=== PATIENT | female | born 1995 | race Caucasian/White ===

== ENCOUNTER → 2020-01-29 14:00 | Outpatient (CLI) | payer OTHER, SELFPAY ==
--- NOTE | 2020-01-29 14:01 | DI.RAD.S_ITS ---
PROCEDURE: XR ANKLE LT MIN 3V INDICATIONS: Left ankle pain TECHNIQUE: 3 views of the ankle were acquired. COMPARISON: None. FINDINGS: Bones: No fractures or dislocations. Ankle mortise is normally aligned. No suspicious bony lesions. Diffuse hindfoot and midfoot joint degeneration. Scattered degenerative subchondral sclerosis and spurring. Soft tissues: No tibiotalar joint effusion. Achilles tendon appears normal. IMPRESSION: Diffuse hindfoot and midfoot joint degeneration. If the patient's pain or other symptoms persist, consider further evaluation with MRI Dictated by: Israel Curtis M.D. on 01/29/2020 at 16:45 Approved by: Israel Curtis M.D. on 01/29/2020 at 16:47
== END ==
PROVIDERS: PCP Family Medicine; Referring Provider Family Medicine; Visit Provider Family Medicine
DX: M25.572 Pain in left ankle and joints of left foot (principal); M19.072 Primary osteoarthritis, left ankle and foot; Z76.89 Persons encountering health services in other specified circumstances
CPT/HCPCS: 73610

== ENCOUNTER 2020-04-27 23:13 | Emergency (ER) | payer SELFPAY ==
[2020-04-27 23:15] VITALS: BP 118/74; PULSE 101; RESP 16; TEMP 36.7; O2SAT 100; BMI 26.6
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
[2020-04-28 00:31] VITALS: BP 119/76; PULSE 103; RESP 15; O2SAT 100
== END 2020-04-28 00:34 | disposition home or self-care (01) ==
PROVIDERS: Emergency Provider Emergency Medicine; PCP Family Medicine
DX: T40.2X1A Poisoning by other opioids, accidental (unintentional), initial encounter (principal); F11.90 Opioid use, unspecified, uncomplicated
CPT/HCPCS: 99282